=== PATIENT | female | born 1990 | race Caucasian/White ===

== ENCOUNTER 2024-03-10 14:49 | Emergency (ER) | payer OTHER, SELFPAY ==
[2024-03-10 14:52] VITALS: BP 129/87; PULSE 71; RESP 20; TEMP 36.2; O2SAT 100
[2024-03-10 14:54] LABS: Glucose Point of Care 231 mg/dl (65-105)
--- NOTE | 2024-03-10 15:25 | ED.ABDPAIN ---
HPI - Abdominal Pain General Chief Complaint: Dizziness Stated Complaint: DIZZY, NAUSEA Time Seen by Provider: 03/10/24 14:53 Source: patient Mode of arrival: ambulatory Limitations: no limitations History of Present Illness HPI narrative: patient is a 33-year-old female with significant past medical history that presents today for abdominal pain and nausea. Patient is a type 1 diabetic and use a CGM and states that her sugar been 200 slightly. She says she may discuss she has been sick. STS with and very vague symptoms. She states she is very nauseous and feels like she wants to throw Up but has not. She also states she has not eaten in 2 days Or drink very much water. She says last A1c was 8.6. MD elicited complaint: abdominal pain Pertinent past history: none Onset (ago): hour(s) Pain Consistency: intermittent Location: diffuse Severity: mild Quality: cramping Radiation: none Migration to: no migration Exacerbating factors: eating and vomiting Relieving factors: nothing Associated symptoms: nausea and vomiting Related Data Patient : No Home Medications Medication Instructions Recorded Confirmed atorvastatin 40 mg tablet 40 mg PO DAILY 03/10/24 03/10/24 buspirone 10 mg tablet 20 mg PO TID 03/10/24 03/10/24 cyclobenzaprine 10 mg tablet 10 mg PO DAILY 03/10/24 03/10/24 desvenlafaxine succinate 100 mg 100 mg PO DAILY 03/10/24 03/10/24 tablet,extended release 24 hr hydroxyzine HCl 25 mg tablet 25 mg PO TID PRN Anxiety 03/10/24 03/10/24 insulin lispro 100 unit/mL See Rx Instructions .Route .COMPLEX 03/10/24 03/10/24 subcutaneous solution irbesartan 75 mg tablet 75 mg PO DAILY 03/10/24 03/10/24 levothyroxine 200 mcg tablet 250 mcg PO DAILY 03/10/24 03/10/24 metoprolol tartrate 25 mg tablet 25 mg PO DAILY 03/10/24 03/10/24 prazosin 2 mg capsule 2 mg PO DAILY 03/10/24 03/10/24 pregabalin 100 mg capsule 100 mg PO DAILY 03/10/24 03/10/24 warfarin 6 mg tablet 9 mg PO DAILY 03/10/24 03/10/24 Allergies Allergy/AdvReac Type Severity Reaction Status Date / Time escitalopram [From Lexapro] Allergy Severe Anxiety Verified 03/10/24 15:27 Review of Systems Review of Systems: All systems reviewed & are unremarkable except as noted in HPI and below Constitutional: Constitutional: Reports as per HPI Eyes: Eyes: Reports no additional eye complaints ENT: Reports system reviewed and no additional complaints, except as documented Cardiovascular: Cardiovascular: Reports no additional cardiovascular complaints Respiratory: Respiratory: Reports no additional respiratory complaints Gastrointestinal: Gastrointestinal: Reports as per HPI, Reports abdominal pain and Reports bloating Genitourinary: Genitourinary: Reports no additional female genitourinary complaints Musculoskeletal: Musculoskeletal: Reports no additional musculoskeletal complaints Integumentary/Breasts: Skin/Breast: Reports system reviewed and no additional complaints, except as docu Neurologic: Reports system reviewed and no additional complaints, except as documented Psychiatric: Psychiatric: Reports no additional psychiatric complaints Endocrine: Endocrine: Reports no additional endocrine complaints Hematologic/Lymphatic: Hematologic/Lymphatic: Reports no additional hematologic/lymphatic complaints Allergic/Immunologic: Allergic/Immunologic: Reports no additional allergic/immunologic complaints Exam Const: General: healthy appearing and no acute distress Nutritional Appearance: well nourished Orientation/consciousness: patient oriented x3 HENMT: Head: normal to inspection Ears: external ears normal Face/Nose/Sinus: Normal external nose present Eyes: Conjunctivae: conjunctivae normal Pupils: Equal, round and reactive pupils present EOM: EOMs intact bilaterally Neck: Neck: normal visual inspection and no lymphadenopathy Chest: Chest palpation & inspection: normal inspection of the chest Resp: Effort & Inspection: normal respiratory
[2024-03-10 15:27] LABS: Eosinophils Absolute Auto 0.03 K/mm3 (0.02-0.50); Eosinophils Percent Auto 0.5 % (1.0-6.0); Hemoglobin 14.4 g/dL (12.0-15.0); Immature Granulocyte Absolute 0.02 K/mm3 (0.00-0.00); Immature Granulocyte Percent A 0.4 % (0.0-0.0); Lymphocytes Absolute Auto 1.36 K/mm3 (1.10-4.50); Lymphocytes Percent Auto 23.9 % (18.0-42.0); Mean Corpuscular HGB Conc 33.5 g/dL (32-36); Mean Corpuscular Hemoglobin 29.3 pg (27.0-31.0); Mean Corpuscular Volume 87.4 fL (78.0-102.0); Mean Platelet Volume 12.3 fl (9.2-11.8); Monocytes Absolute Auto 0.33 K/mm3 (0.10-0.90); Monocytes Percent Auto 5.8 % (2.0-11.0); Neutrophils Absolute Auto 3.96 K/mm3 (1.70-7.20); Neutrophils Percent Auto 69.4 % (50.0-70.0); Platelet Count Result 131 K/mm3 (150-420); Red Blood Count 4.92 M/mm3 (4.20-5.40); Red Cell Distribution Width 12.7 % (11.6-14.4); White Blood Count 5.7 K/mm3 (4.8-10.8)
[2024-03-10 15:42] LABS: Alanine Aminotransferase 36 U/L (14-59); Albumin Level 3.5 g/dL (3.4-5.0); Alkaline Phosphatase 89 U/L (46-116); Anion Gap 7 mmol/L (4-12); Aspartate Amino Transferase 24 U/L (15-37); Bilirubin,Total 0.5 mg/dL (0.00-1.00); Blood Urea Nitrogen 9 mg/dL (7-18); Calcium 8.4 mg/dL (8.5-10.1); Carbon Dioxide 25 mmol/L (21-32); Chloride 103 mmol/L (98-108); Estimated CRCL calculation 88 ml/min; Estimated Glomerular Filt Rate > 60; Glucose 207 mg/dL (70-99); Lipase 120 U/L (16-77); Osmolality Calculated 284 mOsm/kg (285-295); Potassium 3.9 mmol/L (3.5-5.1); Sodium 135 mmol/L (136-145); Total Protein 6.7 g/dL (6.4-8.2)
[2024-03-10] MEDS: PANTOPRAZOLE SODIUM IV 40 MG VIAL IV PUSH (15:45)
[2024-03-10] MEDS: ONDANSETRON INJ 4 MG/2 ML VIAL IV PUSH (15:45)
[2024-03-10] MEDS: SODIUM CHLORIDE 0.9% IV 1,000 ML 999 ML IV CONT (15:46)
[2024-03-10 15:47] LABS: Lactic Acid Reflex 1.1 mmol/L (0.4-2.0)
--- NOTE | 2024-03-10 16:20 | PC.NURSE ---
Pt resting comfortably in stretcher. Call light w/i reach. Gave pt blanket.
[2024-03-10 16:50] VITALS: BP 114/67; O2SAT 99
== END 2024-03-10 17:02 | disposition home or self-care (01) ==
PROVIDERS: Emergency Provider Family Medicine; PCP Family Medicine
DX: T78.40XA Allergy, unspecified, initial encounter (principal); E10.9 Type 1 diabetes mellitus without complications; Z79.4 Long term (current) use of insulin; Z79.899 Other long term (current) drug therapy; Z79.01 Long term (current) use of anticoagulants
CPT/HCPCS: 36415; 80053; 82948; 83605; 83690; 85025; 96361; 96374; 96375; 99284; J2405; J2470; J7030